=== PATIENT | male | born 2000 | race Caucasian/White ===

== ENCOUNTER 2025-10-19 22:25 | Emergency (ER) | payer MEDICAID ==
[~2025-10-19] VITALS: Ht 170.2 cm; Wt 64.0 kg
[2025-10-19 22:40] VITALS: BP 171/80; PULSE 111; RESP 18; TEMP 98.5; O2SAT 99
[2025-10-19] MEDS ORDERED: LORAZEPAM 1MG TABLET PO ONE (22:45)
[2025-10-19] MEDS ORDERED: ACETAMINOPHEN 325MG TABLET PO ONE (22:45)
== END 2025-10-19 22:42 | disposition left against medical advice (07) ==
LOC: ER 22:25
DX: F41.0 Panic disorder [episodic paroxysmal anxiety] (principal); I10 Essential (primary) hypertension; F12.90 Cannabis use, unspecified, uncomplicated
CPT/HCPCS: 93005; 99283; 99284